=== PATIENT | female | born 1990 | race American Indian/Alaskan Native ===

== ENCOUNTER 2017-11-05 04:58 | Emergency (ER) | payer OTHER ==
[2017-11-05 06:02] LABS: Bilirubin,Urine NEG (Negative); Blood,Urine NEG (Negative); Color,Urine Yellow (Yellow); Mucus,Urine 1+ /HPF; Urobilinogen,Urine < 2.0 mg/dL (<2.0)
[2017-11-05 07:00] LABS: Albumin 4.4 g/dL (3.9-5); BUN/Creatinine Ratio 12; Blood Urea Nitrogen 6 mg/dL (7-17); Hemolysis Index 9; Lipase 20 units/L (13-60)
[2017-11-05 07:02] LABS: Alanine Aminotransferase < 5 units/L (7-56); Basophils % (Auto) 0.4 % (0.0-1.8); Eosinophils # (Auto) 0.2 K/mm3 (0.0-0.4); Eosinophils % (Auto) 1.8 % (0.0-4.3); Hematocrit 36.5 % (30.3-42.9); Hemoglobin 12.3 gm/dl (10.1-14.3); Lymphocytes # (Auto) 1.7 K/mm3 (1.2-5.4); Mean Corpuscular HGB Conc 34 % (30-34); Mean Corpuscular Hemoglobin 26 pg (28-32); Mean Corpuscular Volume 77 fl (79-97); Monocytes # (Auto) 0.6 K/mm3 (0.0-0.8); Platelet Count 219 K/mm3 (140-440); Red Blood Count 4.72 M/mm3 (3.65-5.03); Red Cell Distribution Width 14.5 % (13.2-15.2)
[2017-11-05 07:41] VITALS: BP 93/66
--- NOTE | 2017-11-05 08:47 | Emergency Department Report ---
HPI - General Chief Complaint: Abdominal Pain Time Seen by Provider: 11/05/17 08:32 - HPI HPI: Room 7 The patient is a 27-year-old female presenting with a chief complaint of abdominal pain. The patient states for the past 2 weeks she's had intermittent lower abdominal pain left greater than right. Patient describes pain as sharp like a knife being wiggled. The patient states ibuprofen helps temporarily. Patient complains of pain in the lower abdomen and lower back but denies other pains. Patient denies vaginal bleeding nausea or vomiting. The patient states her LMP was 09/16/2017 was within normal limits. The patient states she took a home test which was positive last week the patient states she has not gone to an [facility] [employer] [facility] for this Location: Lower abdomen Duration: Intermittent 2 weeks Quality: Sharp like a knife Severity: 02/21 Modifying factors: [see above] Context: [see above] Mode of transportation: Unknown ED Past Medical Hx - Past Medical History Previous Medical History?: No - Surgical History Additional Surgical History: Left foot surgery, Pilinodal cyst surgery - Family History Family history: no significant - Social History Smoking Status: Never Smoker Substance Use Type: None (denies illicit drug use), Alcohol (occasional) - Medications Home Medications: Home Medications Medication Instructions Recorded Confirmed Last Taken Type Ibuprofen [Motrin 800 MG tab] 800 mg PO Q8HR PRN #20 tablet 11/05/17 Unknown Rx Nitrofurantoin Macrocrystal 100 mg PO BID #14 capsule 11/05/17 Unknown Rx [Nitrofurantoin] ED Review of Systems ROS: Stated complaint: PELVIC PAIN,BACK PAIN Other details as noted in HPI Constitutional: denies: fever Eyes: denies: eye pain ENT: denies: throat pain Cardiovascular: denies: chest pain Gastrointestinal: abdominal pain. denies: nausea, vomiting Genitourinary: denies: abnormal menses Musculoskeletal: back pain Neurological: denies: headache Physical Exam - Physical Exam Vital Signs: Vital Signs 11/05/17 11/05/17 11/05/17 04:56 05:23 06:56 Temperature 98.3 F 98 F Pulse Rate 68 69 Respiratory 18 16 18 Rate Blood Pressure 106/71 106/71 Blood Pressure [Left] O2 Sat by Pulse 100 100 98 Oximetry 11/05/17 07:20 Temperature 98.4 F Pulse Rate 67 Respiratory 18 Rate Blood Pressure Blood Pressure 93/66 [Left] O2 Sat by Pulse 99 Oximetry Physical Exam: GENERAL: The patient is well-developed well-nourished female lying on stretcher not appearing to be in acute distress. [] HEENT: Normocephalic. Atraumatic. Extraocular motions are intact. Patient has moist mucous membranes. NECK: Supple. Trachea midline CHEST/LUNGS: Clear to auscultation. There is no respiratory distress noted. HEART/CARDIOVASCULAR: Regular. There is no tachycardia. There is no gallop rub or murmur. ABDOMEN: Abdomen is soft, with tenderness to palpation in the midepigastric, left upper quadrant and suprapubic regions. Patient has normal bowel sounds. There is no abdominal distention. SKIN: There is no rash. There is no edema. There is no diaphoresis. NEURO: The patient is awake, alert, and oriented. The patient is cooperative. The patient has normal speech MUSCULOSKELETAL: There is no evidence of acute injury. ED Course Vital Signs 11/05/17 11/05/17 11/05/17 04:56 05:23 06:56 Temperature 98.3 F 98 F Pulse Rate 68 69 Respiratory 18 16 18 Rate Blood Pressure 106/71 106/71 Blood Pressure [Left] O2 Sat by Pulse 100 100 98 Oximetry 11/05/17 07:20 Temperature 98.4 F Pulse Rate 67 Respiratory 18 Rate Blood Pressure Blood Pressure 93/66 [Left] O2 Sat by Pulse 99 Oximetry ED Medical Decision Making - Lab Data Result diagrams: 11/05/17 06:11 11/05/17 06:11 Laboratory Tests 11/05/17 11/05/17 11/05/17 05:20 05:34 06:11 WBC 9.5 RBC 4.72 Hgb 12.3 Hct 36.5 MCV 77 L MCH 26 L MCHC 34 RDW 14.5 Plt Count 219 Lymph % (Auto) 18.0 Barry % (Auto) 6.0 Eos % (Auto) 1.8 Baso % (Auto) 0.4 Lymph # 1.7 Barry # 0.6 Eos # 0.2 Baso # 0.0 Seg Neutrophils % 73.8 H Seg Neutrophils # 7.0 Sodium Potassium Chloride Carbon Dioxide Anion Gap BUN Creatinine Estimated GFR BUN/Creatinine Ratio Glucose Calcium Total Bilirubin AST ALT Alkaline Phosphatase Total Protein Albumin Albumin/Globulin Ratio Lipase HCG, Qual Positive HCG, Quant Urine Color Yellow Urine Turbidity Clear Urine pH 5.0 Ur Specific [place] 1.024 Urine Protein 30 mg/dl Urine Glucose (UA) Neg Urine Ketones Tr Urine Blood Neg Urine Nitrite Neg Urine Bilirubin Neg Urine Urobilinogen < 2.0 Ur Leukocyte Esterase Lg Urine WBC (Auto) 8.0 H Urine RBC (Auto) 6.0 U Epithel Cells (Auto) 36.0 H Urine Mucus 1+ 11/05/17 11/05/17 06:11 06:24 WBC RBC Hgb Hct MCV MCH MCHC RDW Plt Count Lymph % (Auto) Barry % (Auto) Eos % (Auto) Baso % (Auto) Lymph # Barry # Eos # Baso # Seg Neutrophils % Seg Neutrophils # Sodium 135 L Potassium 4.3 Chloride 98.0 Carbon Dioxide 24 Anion Gap 17 BUN 6 L Creatinine 0.5 L Estimated GFR > 60 BUN/Creatinine Ratio 12 Glucose 82 Calcium 9.0 Total Bilirubin 0.60 AST 9 ALT < 5 L Alkaline Phosphatase 53 Total Protein 6.6 Albumin 4.4 Albumin/Globulin Ratio 2.0 Lipase 20 HCG, Qual HCG, Quant [id number] H Urine Color Urine Turbidity Urine pH Ur Specific [place] Urine Protein Urine Glucose (UA) Urine Ketones Urine Blood Urine Nitrite Urine Bilirubin Urine Urobilinogen Ur Leukocyte Esterase Urine WBC (Auto) Urine RBC (Auto) U Epithel Cells (Auto) Urine Mucus - Radiology Data Radiology results: image reviewed (pelvic ultrasound) Pelvic ultrasound (read by radiologist)-Single live IUP with estimated age of 5 weeks 5 days. - Differential Diagnosis ectopic , UTI, , molar Critical care attestation.: If time is entered above; I have spent that time in minutes in the direct care of this critically ill patient, excluding procedure time. ED Disposition Clinical Impression: , UTI (urinary tract infection), Proteinuria Disposition: DC- TO HOME OR SELFCARE Is pt being admited?: No Does the pt Need Aspirin: No Condition: Stable Instructions: Abdominal Pain (ED) Additional Instructions: Return to the emergency department immediately should you develop worsening symptoms, fever, inability to tolerate food or liquid or any other concerns. Prescriptions: Ibuprofen [Motrin 800 MG tab] 800 mg PO Q8HR PRN #20 tablet PRN Reason: Pain , Severe (7-10) Nitrofurantoin Macrocrystal [Nitrofurantoin] 100 mg PO BID #14 capsule Referrals: PRIMARY CARE, [Primary Care Provider] - 3-5 Days TERRY FLOYD MD [Staff Physician] - 3-5 Days (Dr. Floyd is an [employer]. Please follow up with her for further evaluation) Time of Disposition: 10:10
--- NOTE | 2017-11-05 10:01 | Ultrasound Report ---
ULTRASOUND OB LESS THAN 14 WEEKS - TRANSABDOMINAL AND TRANSVAGINAL INDICATION: Lower abdominal pain. Serum beta-hCG 30,065 units. COMPARISON: None similar at this institution. FINDINGS: Transabdominal and transvaginal pelvic sonography performed in this patient with LMP of 09/16/2017 and estimated menstrual age of 7 weeks and 1 day. It demonstrates a 8.1 x 4.9 x 6 cm retroverted uterus with a single, viable intrauterine gestation and heart rate of 100 beats per minute. Mean crown-rump length of 0.23 cm corresponds to 5 weeks and 5 days. Small 3 mm yolk sac also seen. No significant free fluid. Cervix closed. Both ovaries seen, approximately 3.8 x 2 x 1.6 cm on the right and 3.7 x 2.2 x 2.9 cm on the left. Few small right ovarian peripheral follicles as also an approximately 1.9 x 1.6 cm left ovarian possible corpus luteum as on endovaginal image 17 noted. CONCLUSION: 1. Single, live intrauterine gestation with an ultrasound estimated age of 5 weeks and 5 days and CHARLIE of 07/03/2018. 2. Other details, as above. Thank you for the opportunity to participate in this patient's care.
== END 2017-11-05 10:38 | disposition home or self-care (01) ==
LOC: ED 04:58
DX: O23.41 Unspecified infection of urinary tract in pregnancy, first trimester (principal); O12.11 Gestational proteinuria, first trimester; Z3A.01 Less than 8 weeks gestation of pregnancy
CPT/HCPCS: 36415; 76801; 76817; 80053; 81001; 83690; 84702; 84703; 85025